=== PATIENT | female | born 1960 | race Caucasian/White ===

== ENCOUNTER → 2016-07-24 | Outpatient (CLI) | payer BC ==
--- NOTE | 2016-07-24 11:12 | DI ---
XR KNEE 3 VW,07/24/2016 10:06 AM: Clinical History: Left knee pain. Previous Exam: None at this facility. Findings: AP lateral and sunrise views of the left knee are obtained, and demonstrate some mild degenerative ch anges within the anterior compartment. There is a small left knee joint effusion. Alignment is anatomic and no fractures are seen. Impression: 1. No fracture. 2. Mild degenerative changes of the anterior compartment. 3. Small left knee joint effusion. Consider MRI for further evaluation.
== END ==
LOC: RAD 09:58
PROVIDERS: ATTEND Physician Assistant Surgical
DX: M25.562 Pain in left knee (principal); M25.462 Effusion, left knee; M17.12 Unilateral primary osteoarthritis, left knee
CPT/HCPCS: 73562

== ENCOUNTER → 2016-07-26 | Outpatient (CLI) | payer BC ==
--- NOTE | 2016-07-26 10:47 | DI ---
MRI LOW EXTREMITY JNT W/O CN,07/26/2016 7:53 AM: Clinical History: Left knee pain. Previous Exam: None at this facility. Findings: Multiplanar MR images are obtained through the left knee without contrast. Bony alignment is anatomic. No fractures are seen. Marrow signal is preserved. There is some thinning of the articular cartilage on the undersurface of the patella and trochlea without full-thickness de fects. There is a complex tear of the body of the lateral meniscus involving the undersurface and predominan tly involving the junctional zone although portions of this tear extends into the the red zone and in to the free edge. There is some increased signal involving the posterior horn of the medial meniscus as well extending to the undersurface. The anterior and posterior cruciate ligaments are intact. The medial and lateral collateral ligaments are also intact. The popliteus tendon appears grossly nor mal. There is a large Almaraz's cyst which dissects into the posterior soft tissues just anterior to the gas trocnemius. The major vascular flow voids are unremarkable. The quadriceps and patellar tendons are unremarkable. There is trace amount of fluid within the proximal tibiofibular joint which is otherwise unremarkable . The arcuate ligament is intact. Impression: 1. Complex tear of the body of the lateral meniscus which extends into all 3 zones. 2. Increased signal involving the inferior portion of the posterior horn of the medial meniscus most likely representing a tear. 3. Knee joint effusion. 4. Large Almaraz's cyst.
== END ==
LOC: MRI 07:50
PROVIDERS: ATTEND Physician Assistant Surgical
DX: M25.562 Pain in left knee (principal); S83.272A Complex tear of lateral meniscus, current injury, left knee, initial encounter; M71.22 Synovial cyst of popliteal space [Baker], left knee; M25.462 Effusion, left knee
CPT/HCPCS: 73721